=== PATIENT | female | born 1960 | race Caucasian/White ===

== ENCOUNTER 2017-01-07 20:26 | Inpatient (IN) | payer OTHER ==
[~2017-01-07] VITALS: Ht 160 cm; Wt 79.4 kg
[2017-01-07 20:29] VITALS: BP 156/91
[2017-01-07] MEDS ORDERED: CLONAZEPAM 1 MG1 M1 PO (20:32)
[2017-01-07] MEDS ORDERED: FLONASE 0.05%50 MCG NASAL (20:32)
[2017-01-07] MEDS ORDERED: PAROXETINE HCL30 MG PO (20:32)
[2017-01-07] MEDS ORDERED: BREO ELLIPTA 21 EACH INH (20:33)
[2017-01-07] MEDS ORDERED: ESCITALOPRAM OX10 MG PO (20:33)
[2017-01-07 21:20] LABS: ABSOLUTE NEUTROPHILS 6.8 thou/uL (1.4-8.2); BASOPHILS 0.9 % (0.0-2.0); EOSINOPHILS 1.9 % (0.0-3.0); HEMATOCRIT 42.7 % (37.0-47.0); HEMOGLOBIN 14.3 gm/dL (12.0-15.0); LYMPHOCYTES 21.3 % (24.0-44.0); MCH 28.5 pg (26.0-34.0); MCHC 33.4 g/dL (28.0-37.0); MCV 85.2 fL (80.0-100.0); MONOCYTES 7.9 % (1.0-8.0); PLATELET COUNT 231 thou/uL (150-400); RBC 5.01 mil/uL (4.20-5.00); RDW 14.9 % (10.5-14.5)
[2017-01-07 21:25] LABS: MANUAL DIFF NO
[2017-01-07 21:36] LABS: CALCIUM 9.7 mg/dL (8.5-10.1); CREATININE 1.2 mg/dL (0.6-1.0); POTASSIUM 4.1 mmol/L (3.5-5.1)
[2017-01-07 22:00] LABS: URINE BILIRUBIN NEGATIVE (Negative); URINE BLOOD 1+ (Negative); URINE COLOR YELLOW; URINE GLUCOSE-RANDOM* NEGATIVE (Negative); URINE KETONES TRACE (Negative); URINE NITRITE NEGATIVE (Negative); URINE PROTEIN (DIPSTICK) NEGATIVE (Negative); URINE UROBILINOGEN 0.2 E.U./dl (0.2-1.0)
[2017-01-07 22:07] LABS: BACTERIA 1-9 Few /HPF (None Seen); CASTS None Seen /LPF (None Seen); CRYSTALS None Seen /LPF (None Seen); SQUAMOUS 4-10 Moderate /LPF (0-3); URINE RBC 0-2 Rare /HPF (0-2); URINE WBC None Seen /HPF (0-5)
[2017-01-07 22:37] VITALS: BP 150/88
[2017-01-07 22:54] VITALS: BP 154/84
[2017-01-07 23:15] VITALS: BP 125/69
[2017-01-08 04:30] VITALS: BP 117/70
[2017-01-08 07:53] VITALS: BP 114/74
[2017-01-08] MEDS ORDERED: PROTONIX 20 MG20 M1 PO (11:41)
[2017-01-08] MEDS ORDERED: FLOMAX0.4 MG PO (11:41)
[2017-01-08] MEDS ORDERED: IBUPROFEN 600600 M1 PO (11:41)
[2017-01-08] MEDS ORDERED: ZOFRAN 4 MG ORAL4 MG DISSOLVE (11:41)
[2017-01-08 12:57] VITALS: BP 114/74
[2017-01-08 14:02] VITALS: BP 114/74
[2017-01-08 14:30] VITALS: BP 114/74
== END 2017-01-08 14:15 | disposition home or self-care (01) | DRG 694 ==
LOC: ER 20:26 → 4E 22:19 → EROBS 22:19 → 4E 22:57
PROVIDERS: Nurse Practitioner
DX: N20.2 Calculus of kidney with calculus of ureter (principal); K21.9 Gastro-esophageal reflux disease without esophagitis; F32.9 Major depressive disorder, single episode, unspecified; F41.9 Anxiety disorder, unspecified; J30.2 Other seasonal allergic rhinitis; Z79.899 Other long term (current) drug therapy; Z90.721 Acquired absence of ovaries, unilateral; Z88.6 Allergy status to analgesic agent; Z90.49 Acquired absence of other specified parts of digestive tract
CPT/HCPCS: 10084

== ENCOUNTER → 2017-06-04 | Outpatient (CLI) | payer OTHER ==
[~2017-06-04] MED LIST: BREO ELLIPTA 21 EACH INH; CLONAZEPAM 1 MG1 M1 PO; ESCITALOPRAM OX10 MG PO; FLOMAX0.4 MG PO; FLONASE 0.05%50 MCG NASAL; IBUPROFEN 600600 M1 PO; PAROXETINE HCL30 MG PO; PROTONIX 20 MG20 M1 PO; ZOFRAN 4 MG ORAL4 MG DISSOLVE
== END ==
LOC: RAD 15:31
DX: R05 Cough (principal); Z90.49 Acquired absence of other specified parts of digestive tract

== ENCOUNTER → 2019-05-10 | Outpatient (CLI) | payer OTHER | LOC: CAT 10:55 | DX: Z13.6 Encounter for screening for cardiovascular disorders (principal); E78.00 Pure hypercholesterolemia, unspecified; I25.10 Atherosclerotic heart disease of native coronary artery without angina pectoris ==